=== PATIENT | female | born 1970 | race African-American/Black ===

== ENCOUNTER 2018-12-12 07:07 | Emergency (ER) | payer MEDICAID ==
[~2018-12-12] VITALS: Ht 167.6 cm; Wt 71.0 kg
[2018-12-12 07:17] VITALS: BP 128/78
== END 2018-12-12 08:59 | disposition left against medical advice (07) ==
LOC: ER 07:07
DX: Z53.21 Procedure and treatment not carried out due to patient leaving prior to being seen by health care provider (principal); Z88.2 Allergy status to sulfonamides; F17.200 Nicotine dependence, unspecified, uncomplicated
CPT/HCPCS: Z7610 ×3

== ENCOUNTER 2019-10-02 00:38 | Emergency (ER) | payer MEDICAID ==
[~2019-10-02] VITALS: Ht 170.2 cm; Wt 72.0 kg
[2019-10-02] MEDS ORDERED: IBUPROFEN 600MG TABLET PO ONE (01:45)
[2019-10-02] MEDS ORDERED: FAMOTIDINE 20MG TABLET PO ONE (01:45)
[2019-10-02 01:58] VITALS: BP 140/79
== END 2019-10-02 02:15 | disposition home or self-care (01) ==
LOC: ER 00:38
DX: J06.9 Acute upper respiratory infection, unspecified (principal); R07.9 Chest pain, unspecified; Z88.2 Allergy status to sulfonamides; Z88.3 Allergy status to other anti-infective agents
CPT/HCPCS: 93005; 99283

== ENCOUNTER 2021-05-07 03:38 | Emergency (ER) | payer MEDICAID | END 2021-05-07 04:16 | disposition left against medical advice (07) | LOC: ER 03:38 | DX: Z53.21 Procedure and treatment not carried out due to patient leaving prior to being seen by health care provider (principal) ==